=== PATIENT | male | born 1995 | race Caucasian/White ===

== ENCOUNTER 2017-03-22 19:36 | Emergency (ER) | payer BC, OTHER ==
--- NOTE | ~2017-03-22 | EKG ---
PATIENT: LULU ROJAS UNIT #: [id number] Ventricular Rate: 79 BPM Atrial Rate: 79 BPM P-R Interval: 180 ms QRS Duration: 90 ms Q-T Interval: 378 ms QTC Calculation(Bezet): 433 ms P [place]: 57 degrees Calculated R [place]: 52 degrees Calculated T [place]: 48 degrees Diagnosis Line: Normal sinus rhythm with sinus arrhythmia Diagnosis Line: Incomplete right bundle branch block Diagnosis Line: Normal ECG Diagnosis Line: When compared with ECG of 22-MAR-2017 20:23, Diagnosis Line: (unconfirmed) Diagnosis Line: No significant change was found Diagnosis Line: Confirmed by SULAIMAN FALCON MD ([id number]) on Diagnosis Line: 03/23/2017 4:31:00 PM INTERPRETING MD: TERRIE GIRALDO
--- NOTE | ~2017-03-22 | CT71 ---
[facility] A Service [facility] RADIOLOGY TEXT RESULTS PATIENT: LULU ROJAS LOCATION: [facility] : [birth year] UNIT #: [id number] AGE: [address]: Any Calderon MD SEX: M ORDER DR: [id number] [place] [facility]. [place], [place] [address] [id number] MR#: [id number] Acc #: [id number] NAME: LULU ROJAS : 1995 SEX: M STUDY DATE/TIME: 03/23/2017 3:32 UNIT: [facility] ROOM: STUDY DESCRIPTION: CT Head Wo Contrast Attending Physician: Any Calderon M.D. Ordering Physician: Any Calderon M.D. [facility] RE[facility] This report is preliminary unless electronic signature is present EXAM CT head. INDICATION Dizziness, weakness, and numbness. Syncope. Headache. 2-day duration. TECHNIQUE CT of the head without contrast. This CT exam was performed with one or more of the following radiation dose reduction techniques: automatic exposure control, adjustment of mA and/or kV according to patient size, and iterative reconstruction. COMPARISON None available. FINDINGS Axial noncontrast images were obtained from the skull base to the vertex. Ventricular size and configuration are normal. There is no evidence of acute infarct or hemorrhage. There are no extra-axial fluid collections. No mass lesion or mass effect is seen. There are no skull fractures. IMPRESSION Normal noncontrast head CT. Dictated by... Kwesi Foy M.D. THIS IS AN ELECTRONICALLY VERIFIED REPORT Kwesi Foy M.D. at 03/23/2017 11:10 PM RPC/tmw [facility] A Service [facility] RADIOLOGY TEXT RESULTS PATIENT: LULU ROJAS LOCATION: [facility] : 94 UNIT #: [id number] AGE: [address]: Any Calderon MD SEX: M ORDER DR: TD: 03/23/2017 08:05 JOB #: [id number] MEDICAL IMAGING REPORT Page 1 of 1 COPY
--- NOTE | ~2017-03-22 | EKG ---
PATIENT: LULU ROJAS UNIT #: [id number] Ventricular Rate: 78 BPM Atrial Rate: 78 BPM P-R Interval: 154 ms QRS Duration: 86 ms Q-T Interval: 376 ms QTC Calculation(Bezet): 428 ms P [place]: 70 degrees Calculated R [place]: 48 degrees Calculated T [place]: 45 degrees Diagnosis Line: Sinus rhythm with marked sinus arrhythmia Diagnosis Line: Otherwise normal ECG Diagnosis Line: When compared with ECG of 05-NOV-2012 00:47, Diagnosis Line: No significant change was found Diagnosis Line: Confirmed by SULAIMAN FALCON MD ([id number]) on Diagnosis Line: 03/23/2017 4:29:32 PM INTERPRETING MD: TERRIE GIRALDO
[~2017-03-22 19:36] MED LIST: FAMOTIDINE PO; IBUPROFEN600 MG PO; PHENERGAN25 M1 PO; PRILOSEC20 MG PO
[2017-03-22 21:55] LABS: BASOPHIL# 0.1 X10e3 (0-0.3); BASOPHIL% 0.5 % (0-2.5); EOSINOPHIL# 0.4 X10e3 (0-0.7); EOSINOPHIL% 3.9 % (0.0-7.0); HEMATOCRIT 42.4 % (38.0-50.0); HEMOGLOBIN 14.3 gm/dL (13.0-16.0); LYMPHOCYTE# 3.1 X10e3 (1.0-3.5); LYMPHOCYTE% 30.3 % (17.0-45.0); MEAN CELL VOLUME 91.8 FL (83-96); MEAN CORPUSCULAR HGB CONC 33.7 g/dL (30-36); MEAN PLATELET VOLUME 8.3 FL (6.5-11.5); MONOCYTE# 0.5 X10e3 (0-1.0); MONOCYTE% 4.8 % (3.0-12.0); NEUTROPHIL# 6.2 X10e3 (1.5-7.1); NEUTROPHIL% 60.5 % (40-75); PLATELET COUNT 248 X10e3 (140-420); RED BLOOD COUNT 4.62 X10e (3.90-5.60); WHITE BLOOD COUNT 10.2 X10e3 (4.0-10.5)
[2017-03-22 21:57] LABS: DIFF IND NO
[2017-03-22 22:18] LABS: ALBUMIN SERUM 4.5 g/dL (3.5-5.0); BILIRUBIN,TOTAL 0.5 mg/dL (0.2-2.0); CREATININE SERUM 0.8 mg/dL (0.6-1.4); GLOM FILT RATE Estimated 126.9 mL/min (>60); POTASSIUM 3.5 mmol/L (3.5-5.1); PROTEIN TOTAL SERUM 7.3 g/dL (6.0-8.3)
[2017-03-22 22:21] LABS: BILIRUBIN, DIRECT 0.1 mg/dL (0.0-0.2); BILIRUBIN,INDIRECT 0.4 mg/dL (0.0-0.9)
[2017-03-23 02:22] LABS: URINE SOURCE CLEAN CATCH
[2017-03-23 02:26] LABS: URINE APPEARANCE CLEAR; URINE BILIRUBIN NEG (NEG); URINE BLOOD NEG (NEG); URINE COLOR YELLOW; URINE GLUCOSE NEG (NEG); URINE KETONE NEG (NEG); URINE LEUKOCYTE ESTERASE NEG (NEG); URINE NITRATE NEG (NEG); URINE PH 5.5 (5-8); URINE PROTEIN NEG (NEG); URINE SPECIFIC GRAVITY 1.008 (1.003-1.035); URINE UROBILINOGEN 0.2 MG/DL (NEG)
[2017-03-23 02:38] LABS: CULTURE INDICATED? NO
== END 2017-03-23 04:58 | disposition home or self-care (01) ==
LOC: CED 19:36
DX: R55 Syncope and collapse (principal); R42 Dizziness and giddiness
CPT/HCPCS: 36415; 70450; 80048; 80076; 81003; 85025; 93005; 99284

== ENCOUNTER 2017-05-25 13:00 | Inpatient (IN) | payer BC, OTHER ==
[~2017-05-25] VITALS: Ht 177.8 cm; Wt 78.9 kg
--- NOTE | ~2017-05-25 | PN ---
Unit #: [id number] #: [id number] Patient: MACARIO ROJAS [id number] [facility] [address] [place] [address] [id number] I MR#: [id number] NAME: MACARIO ROJAS ROOM: 13 Age: 21 Sex: M Admission Date: 05/25/2017 : 1995 Attending Physician: Carlos Erickson M.D. Admitting Physician: Carlos Erickson M.D. Primary Care Physician: Generic Doctor Not In System [facility] PROGRESS NOTES DATE 05/27/2017 DISCUSSION Macario says that he did not sleep last night and has rather odd belief that he has a "bump" on the back of his head, which was there yesterday and disappeared today. He asked if any "anybody had seen me fall," but this was not recorded by nursing staff. His mood remains depressed and irritable with a congruent affect. He is alert and fully oriented. His memory and concentration are fair. His through processes seem a little circumstantial and possibly with some somatic delusions. He continues to report suicidal ideation. ASSESSMENT Depression due to general medical condition. At this point, I have some concern that this patient's symptomatology given his young age, somewhat somatic delusions, lack of response to antidepressants, and his declining his personal and psychosocial function over the past several months are worrisome for onset of either schizophrenia or bipolar disorder but we will continue to monitor and evaluate this situation. PLAN For mood stability and antidepressant level of mentation, I am going to add Risperdal 1 mg at bedtime. I will also add Ambien 10 mg at bedtime as needed for insomnia. Dictated by... Tyra Marina/alexei TD: 05/28/2017 08:09 JOB #: [id number] Unit #: [id number] #: [id number] Patient: MACARIO ROJAS PROGRESS NOTES Page 1 of 1 X Carlos Erickson MD PROGRESS NOTE
--- NOTE | ~2017-05-25 | PN ---
Unit #: [id number] #: [id number] Patient: MACARIO ROJAS [id number] [facility] [address] [place] [address] [id number] I MR#: [id number] NAME: MACARIO ROJAS ROOM: 13 Age: 21 Sex: M Admission Date: 05/25/2017 : 1995 Attending Physician: Carlos Erickson M.D. Admitting Physician: Carlos Erickson M.D. Primary Care Physician: Generic Doctor Not In System [email or web address] PROGRESS NOTES DATE OF SERVICE 05/28/2017 DISCUSSION Macario slept better last night with Ambien and appears to have a brighter affect and a less confused aspect this morning after starting risperidone. He denies any adverse side effects and there is no sign of tardive, dyskinesia, dystonia or EPS. His mood is a little better with a brighter affect. He is alert and fully oriented. His memory and concentration are fair. His thought processes are logical with reduced appearance of paranoia. ASSESSMENT Major depression with psychotic features. PLAN Continue current treatment plan anticipating discharge in the near future. Dictated by... Tyra Marina/kilo TD: 05/29/2017 00:53 JOB #: [id number] [facility] PROGRESS NOTES Page 1 of 1 X Carlos Erickson MD PROGRESS NOTE
--- NOTE | ~2017-05-25 | PN ---
Unit #: [id number] #: [id number] Patient: MACARIO ROJAS [id number] [place] [address] [id number] I MR#: [id number] NAME: MACARIO ROJAS ROOM: 13 Age: 21 Sex: M Admission Date: 05/25/2017 : 1995 Attending Physician: Carlos Erickson M.D. Admitting Physician: Carlos Erickson M.D. Primary Care Physician: Generic Doctor Not In System [facility] PROGRESS NOTES REASON FOR ADMISSION Macario is a 21-year-old man who reported a history of onset of depression after he began having chronic headaches following an injury. He states that very little has helped his headache problem and he has become increasingly depressed and nonfunctional with decrease in activities of daily living and is now on disability from his employer. He had suicidal ideation and feelings of hopelessness and was admitted for stabilization. DIAGNOSTIC STUDIES LABORATORY DATA: Please see hospital chart. HOSPITAL COURSE Patient was admitted and placed on suicide precautions. Prozac was increased to 40 mg daily, and the patient exhibited some evidence of soft, psychotic symptoms including paranoia and stilted thought processes. He also reported poor sleep. Due to his chronic headaches, a low dose of Depakote 250 mg at bedtime was initiated in an attempts to alleviate chronic headache onset, and risperidone 1 mg at bedtime was added for his psychotic symptoms with provision of Ambien 10 mg at bedtime for insomnia. The patient improved considerably after this, and participated actively in groups and activities. There was a suggestion of some psychosocial decline and soft psychotic symptoms, possibly suggestive of a schizophreniform disorder, but by the time the patient was discharged his mood and affect had cleared considerably. He was able to contract for safety in the outpatient setting. DISCHARGE DIAGNOSES AXIS I: Major depressive disorder with psychotic features (revised diagnosis). Rule out schizophrenic formed disorder. AXIS II: No diagnosis. AXIS III: Chronic headaches. History of asthma. DISCHARGE INSTRUCTIONS The patient follow up with community mental health services through [facility]. DISCHARGE MEDICATIONS 1. Prozac 40 mg daily for depression. 2. Risperidone 1 mg at bedtime for psychotic features. 3. Ambien 10 mg at bedtime as needed for insomnia. Unit #: [id number] #: [id number] Patient: MACARIO ROJAS 4. Depakote 250 mg at bedtime for headaches. CONDITION ON DISCHARGE Improved. PROGNOSIS Fair to good. DIET AND ACTIVITY Per primary care doctor. Dictated by... Tyra Marina/aura TD: 05/30/2017 10:49 JOB #: [id number] [facility] PROGRESS NOTES Page 1 of 1 X Carlos Erickson MD X PROGRESS NOTE
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
--- NOTE | ~2017-05-25 | HP ---
Unit #: [id number] #: [id number] Patient: LULU ROJAS [id number] [facility] [address] [place] [address] [id number] I MR#: [id number] NAME: LULU ROJAS ROOM: 13 Age: 21 Sex: M Admission Date: 05/25/2017 : 1995 Attending Physician: Carlos Erickson M.D. Admitting Physician: Carlos Erickson M.D. Primary Care Physician: Generic Doctor Not In System HISTORY AND PHYSICAL HISTORY OF PRESENT ILLNESS The patient is a 21-year-old male who states that he is here for suicidal ideation with no attempt. PAST MEDICAL HISTORY Significant for migraines that cause stroke like symptoms. PAST SURGICAL HISTORY Significant for hernia repair. SOCIAL HISTORY Negative. ALLERGIES Codeine and contrast dye. No allergy to NSAIDS that patient states NSAIDS caused a stomach bleed at one point. FAMILY HISTORY Noncontributory. REVIEW OF SYSTEMS CONSTITUTIONAL: No fever or chills. HEENT: Denies any sore throat, ear pain or runny nose. CARDIOVASCULAR: Denies chest pain, irregular heart rhythm or palpitations. CHEST: Denies shortness of breath or cough. No hemoptysis. GASTROINTESTINAL: Denies nausea, vomiting, diarrhea or chronic constipation. ENDOCRINE: Denies history of increased thirst or urination. No recent significant weight loss or gain. GENITOURINARY: Denies dysuria, frequency, or hematuria. SKIN: Denies any rashes. HEMATOLOGIC: Denies history of increased bleeding or bruising. MUSCULOSKELETAL: Denies any hot, swollen joints. No generalized muscle pain. NEUROLOGIC: Denies problems with vision or speech. No frequent, severe headaches. No numbness, tingling or weakness in any extremities. Denies loss of bladder or bowel control. CURRENT MEDICATIONS 1. Omeprazole 20 mg p.o. daily Unit #: [id number] #: [id number] Patient: LULU ROJAS 2. Prozac 20 mg p.o. daily 3. Magnesium 250 mg p.o. daily 4. Lexapro 10 mg p.o. daily 5. Melatonin 10 mg p.o. daily 6. Naproxen 550 mg p.o. three times daily 7. Zofran 4 mg p.o. q.8 hours p.r.n. 8. Excedrin p.o. q day p.r.n. 9. Multivitamin 1 daily 10. Ventolin inhaler q 4 hours p.r.n. PHYSICAL EXAMINATION GENERAL: Alert, oriented in no acute distress. VITAL SIGNS: Temperature 97.6, blood pressure 122/75, heart rate 71, respirations 18. The patient's height is 5 feet 10 inches and no weight is available. SKIN: Warm and dry without rash or lesion. HEENT: Normocephalic. TMs not viewed. Oral and nasal passages clear. Conjunctivae clear. PERRLA. EOMs intact. NECK: Supple without lymphadenopathy or thyromegaly. HEART: Regular rate and rhythm without murmur. LUNGS: Clear. ABDOMEN: Soft, nontender, without masses or hepatosplenomegaly. : Not done. EXTREMITIES: No evidence of cyanosis, clubbing or edema. Moves all without focal deficit. NEUROLOGICAL: Grossly within normal limits. Cranial Nerves: II: Visual kinney are intact. III, IV AND : Extraocular movements are intact. Pupils are equal, round and reactive to light. V: Facial sensation is grossly normal. VII: Facial movements and expression are normal. VIII: Auditory acuity grossly intact. IX, X: Uvula is midline. Phonation is normal. XI: Patient shrugs shoulders and turns head normally. XII: Tongue protrudes in the midline. Sensory and Motor Function: Sensory and motor sensation is grossly normal. Motor: moves all extremities well. Coordination: Gait is normal. Deep Tendon Reflexes: Intact. IMPRESSION Psychiatric admission RECOMMENDATIONS Psychiatric, per psychiatrist. MEDICAL: I see no contraindications to participating in facility's activities. MEDICAL PROGNOSIS Good. Dictated by... Altagracia Terry/kilo Unit #: [id number] #: [id number] Patient: LULU ROJAS TD: 05/27/2017 03:22 JOB #: [id number] HISTORY AND PHYSICAL Page 1 of 1 X Yulia Murray APR X HISTORY AND PHYSICAL
[2017-05-26 12:08] LABS: BASOPHIL% 0.2 % (0-2.5); EOSINOPHIL# 0.7 X10e3 (0-0.7); EOSINOPHIL% 8.4 % (0.0-7.0); HEMATOCRIT 46.3 % (38.0-50.0); HEMOGLOBIN 15.3 gm/dL (13.0-16.0); LYMPHOCYTE# 2.5 X10e3 (1.0-3.5); LYMPHOCYTE% 29.7 % (17.0-45.0); MEAN CELL VOLUME 91.8 FL (83-96); MEAN CORPUSCULAR HEMOGLOBIN 30.3 PG (28-34); MEAN PLATELET VOLUME 8.5 FL (6.5-11.5); MONOCYTE# 0.3 X10e3 (0-1.0); MONOCYTE% 3.6 % (3.0-12.0); NEUTROPHIL# 4.9 X10e3 (1.5-7.1); NEUTROPHIL% 58.1 % (40-75); PLATELET COUNT 232 X10e3 (140-420); RED BLOOD COUNT 5.04 X10e (3.90-5.60); RED CELL DISTRIBUTION WIDTH 12.8 % (11.0-15.5); WHITE BLOOD COUNT 8.4 X10e3 (4.0-10.5)
[2017-05-26 12:09] LABS: DIFF IND NO
[2017-05-26 12:26] LABS: ALBUMIN SERUM 4.5 g/dL (3.5-5.0); BILIRUBIN,TOTAL 0.9 mg/dL (0.2-2.0); BUN/CREATININE RATIO 13.33; CALCIUM SERUM 9.5 mg/dL (8.4-10.2); CREATININE SERUM 0.9 mg/dL (0.6-1.4); GLOM FILT RATE Estimated 120.8 mL/min (>60); POTASSIUM 3.8 mmol/L (3.5-5.1); PROTEIN TOTAL SERUM 7.3 g/dL (6.0-8.3)
== END 2017-05-29 14:55 | DRG 885 ==
LOC: P1S 17:11
PROVIDERS: Psychiatry & Neurology Psychiatry
DX: F32.3 Major depressive disorder, single episode, severe with psychotic features (principal); F32.89 Other specified depressive episodes; R45.851 Suicidal ideations
CPT/HCPCS: 80053; 85025